=== PATIENT | female | born 1935 ===

== ENCOUNTER 2017-08-19 08:15 | Inpatient (IN) | payer OTHER ==
[~2017-08-19] VITALS: Ht 162.6 cm; Wt 83.5 kg
[2017-08-19] MEDS ORDERED: HUMULIN 70100 UNIT/2 SUBCUTANEO (10:56)
[2017-08-19] MEDS ORDERED: ROPINIROLE HCL0.5 MG PO (10:56)
[2017-08-19] MEDS ORDERED: DIOVAN320 MG PO (10:57)
[2017-08-19] MEDS ORDERED: ATORVASTATIN CA40 MG PO (10:57)
[2017-08-19] MEDS ORDERED: LYRICA150 MG PO (10:57)
[2017-08-19] MEDS ORDERED: TYLOPHEN500 MG PO (10:59)
[2017-08-19] MEDS ORDERED: MAGNESIUM400 MG PO (10:59)
[2017-08-19] MEDS ORDERED: OSTERA TABLET1 EACH PO (10:59)
[2017-08-19] MEDS ORDERED: MULTI VITAMIN1 EACH PO (11:00)
[2017-08-19] MEDS ORDERED: TROMBONEX CAPS1 EACH PO (11:00)
[2017-09-12] MEDS ORDERED: ACETAMINOPHEN500 M1 PO (08:17)
[2017-09-12] MEDS ORDERED: XARELTO10 MG PO (08:17)
[2017-09-12] MEDS ORDERED: INTEGRA PLUS C1 EACH PO (08:17)
== END 2017-09-12 17:59 | DRG 470 ==
LOC: SURH 09-09 05:35 → O/R 09-09 05:35 → SURH 09-09 07:00
PROVIDERS: Orthopaedic Surgery Sports Medicine
PROC: 0SRC0J9 Replacement of Right Knee Joint with Synthetic Substitute, Cemented, Open Approach (ICD-10-PCS; principal; 2017-09-09 07:00)
DX: M17.11 Unilateral primary osteoarthritis, right knee (principal); I10 Essential (primary) hypertension; E11.9 Type 2 diabetes mellitus without complications